=== PATIENT | female | born 1935 | race Caucasian/White ===

== ENCOUNTER → 2016-04-07 | Outpatient (CLI) | payer BC ==
[~2016-04-07] MED LIST: ADVIN10/60 INH; AMLO-110 PO; AMLO5TAB2 PO; ASCA500 PO; ASCO10003 PO; ASPEC81 PO; ASPI81TA28 PO; ATOR-26 PO; ATV/1 PO; ATV1 PO; BIOT1CAP3 PO; BIOTPOW17 PO; BLAC1TAB PO; BLACCAP2 PO; CALC-354 PO; CLB200 PO; CLTP PO; CYAN250T PO; DIPH1TAB PO; DIPH25CA37 PO; FENO134C2 PO; FURO-85 PO; GARL10007 PO; HYDC25 PO; HYDR-5688 PO; ISOS30TA3 PO; ISOS30TA35 PO; LISI-461 PO; LSN40 PO; MAGN400T6 PO; METO100T14 PO; METO50TA7 PO; MULT-188 PO; MULT-506 PO; MULTCHW PO; NITR0.4S UT; NTRSLP4; OXYC1TAB3 PO; PRLSR20 PO; RIVA1TAB4 PO; SNK PO; THIA100T11 PO; THIA250T3 PO; TRAM-10 PO; TRCUNK PO; VITA1TAB4 PO; VITACAP28 PO; VITAMIN E PO; VITATAB16 PO; VTMB12 PO; b12; maxair INH
[2016-04-07 18:07] LABS: BLOOD UREA NITROGEN 26 mg/dl (7-18); BUN/CREATININE RATIO 23.6 (10-20); CALCIUM 9.2 mg/dl (8.5-10.1); CARBON DIOXIDE 30 mmol/L (21-32); CHLORIDE 105 mmol/L (98-107); GLUCOSE 109 mg/dl (70-99); POTASSIUM 4.3 mmol/L (3.5-5.1); SODIUM 142 mmol/L (136-145)
== END | disposition home or self-care (01) ==
LOC: C.LABMFLN 13:30
PROVIDERS: ATTEND Internal Medicine Cardiovascular Disease
DX: R60.9 Edema, unspecified (principal)

== ENCOUNTER → 2016-07-01 | Outpatient (CLI) | payer BC ==
[~2016-07-01] MED LIST changes: -DIPH1TAB PO; +DIPH1TAB87 PO
[2016-07-01 19:46] LABS: HEMATOCRIT 37.8 % (37-47); MEAN CELL VOLUME 90.9 fL (80-100); MEAN CORPUSCULAR HEMOGLOBIN 29.3 pg (25-34); MEAN CORPUSCULAR HGB CONC 32.3 g/dl (32-36); MEAN PLATELET VOLUME 11.5 fL (7.4-10.4); PLATELET COUNT 86 K/uL (130-400); RED BLOOD COUNT 4.16 M/uL (4.2-5.4); WHITE BLOOD COUNT 5.16 K/uL (4.8-10.8)
[2016-07-01 20:02] LABS: BASO ABS # 0.05 K/uL (0-0.2); COMPLETE YES; EOS % 2.3 %; IG% 0.8 %; LYMPH % 32.8 %; LYMPH ABS # 1.69 K/uL (1.2-3.4); NEUT % 50.1 %; PLT ESTIMATE DECREASED
== END | disposition home or self-care (01) ==
LOC: C.LABMFLN 14:42
PROVIDERS: ATTEND Family Medicine
DX: D69.6 Thrombocytopenia, unspecified (principal)

== ENCOUNTER 2016-09-22 14:42 | Emergency (ER) | payer BC ==
[~2016-09-22] VITALS: Ht 160 cm; Wt 85.0 kg
[~2016-09-22 14:42] MED LIST changes: -ASCO10003 PO; -ASPI81TA28 PO; -ATV/1 PO; -BIOT1CAP3 PO; -BLAC1TAB PO; -CALC-354 PO; -CYAN250T PO; -DIPH1TAB87 PO; -FENO134C2 PO; -FURO-85 PO; -ISOS30TA35 PO; -LSN40 PO; -METO100T14 PO; -MULT-188 PO; -MULTCHW PO; -NITR0.4S UT; -OXYC1TAB3 PO; -RIVA1TAB4 PO; -THIA250T3 PO; -TRAM-10 PO; -VITA1TAB4 PO; -VITACAP28 PO; -VTMB12 PO
[2016-09-22 14:45] VITALS: TEMP 36.8; Ht 160 cm; Wt 85.0 kg
--- NOTE | 2016-09-22 15:27 | DIAGNOSTIC IMAGING REPORT ---
LEFT PELVIS/UNILATERAL HIP 2-3VIEWS CLINICAL HISTORY: L hip pain pain COMPARISON: None. DISCUSSION: Postoperative changes consistent with a lumbar laminectomy and fusion. Total right hip arthroplasty. Moderate degenerative narrowing left hip joint space. No evidence for acetabular protrusion. There is no evidence for soft tissue swelling. IMPRESSION: Moderate degenerative change left hip. Postoperative changes to the lumbar spine and right hip. Electronically signed by: Chris Mendoza M.D. 09/22/2016 3:25 PM Dictated Date/Time: 09/22/2016 3:25 PM
[2016-09-22] MEDS ORDERED: MoRPHine SULFATE 10 MG/ML CARP/VIAL IM STA (15:39)
[2016-09-22] MEDS ORDERED: ATOR-26 PO (16:11)
[2016-09-22] MEDS ORDERED: AMLO-110 PO (16:11)
[2016-09-22] MEDS ORDERED: CYAN250T PO (16:11)
[2016-09-22] MEDS ORDERED: BLAC1TAB PO (16:11)
[2016-09-22] MEDS ORDERED: VTMB12 PO (16:11)
[2016-09-22] MEDS ORDERED: MULTCHW PO (16:11)
[2016-09-22] MEDS ORDERED: FENO134C2 PO (16:11)
[2016-09-22] MEDS ORDERED: ASPI81TA28 PO (16:11)
[2016-09-22] MEDS ORDERED: MAGN400T6 PO (16:11)
[2016-09-22] MEDS ORDERED: FURO-85 PO (16:11)
[2016-09-22] MEDS ORDERED: VITA1TAB4 PO (16:11)
[2016-09-22] MEDS ORDERED: NITR0.4S UT (16:11)
[2016-09-22] MEDS ORDERED: VITACAP28 PO (16:11)
[2016-09-22] MEDS ORDERED: BIOT1CAP3 PO (16:11)
[2016-09-22] MEDS ORDERED: ATV/1 PO (16:11)
[2016-09-22] MEDS ORDERED: LSN40 PO (16:11)
[2016-09-22] MEDS ORDERED: RIVA1TAB4 PO (16:11)
[2016-09-22] MEDS ORDERED: ASCO10003 PO (16:11)
[2016-09-22] MEDS ORDERED: TRAM-10 PO (16:11)
[2016-09-22] MEDS ORDERED: GARL10007 PO (16:11)
[2016-09-22] MEDS ORDERED: ADVIN10/60 INH (16:11)
[2016-09-22] MEDS ORDERED: DIPH1TAB87 PO (16:11)
[2016-09-22] MEDS ORDERED: MULT-188 PO (16:11)
[2016-09-22] MEDS ORDERED: ISOS30TA35 PO (16:11)
[2016-09-22] MEDS ORDERED: METO100T14 PO (16:11)
[2016-09-22] MEDS ORDERED: PRLSR20 PO (16:11)
[2016-09-22] MEDS ORDERED: CALC-354 PO (16:11)
[2016-09-22] MEDS ORDERED: THIA250T3 PO (16:17)
[2016-09-22] MEDS ORDERED: OXYC1TAB3 PO (16:21)
[2016-09-22 16:38] VITALS: BP 168/78; PULSE 93; O2SAT 92
--- NOTE | 2016-09-22 18:30 | EMERGENCY ROOM VISIT NOTE ---
History Report prepared by Stacey: Francia Campbell Under the Supervision of: Dr. Devon Moore D.O. First contact with patient: 14:45 Chief Complaint: HIP PAIN Stated Complaint: PAIN IN HIP DOWN FRONT OF LEGS & LOWER BACK History of Present Illness The patient is a 81 year old female who presents to the Emergency Room with complaints of constant left hip pain that worsened yesterday. The pain radiates into her buttock and down her left leg. The patient has been experiencing intermittent left hip pain for the last 3 months but it became constant yesterday. She denies doing anything that would have caused the pain to get worse. She also denies any recent falls. The pain is worse when she ambulates or when she lies on it. She states that she took some pain medication at home and that offered some relief of her pain.The patient states that she experiences nausea and vomiting with the hip pain. She is also experiencing intermittent groin numbness. The patient denies any other complaints including chest pain, shortness of breath, abdominal pain, pain or burning with urination , and numbness or weakness in her legs. The patient has a history of a right hip replacement done by Dr. Galvin - Orthopedic Surgery. Her left hip pain feels similar to the pain she experienced prior to her right hip replacement. The patient's states that Dr. Galvin told the patient that she would probably have to have her left hip replaced eventually also. Source of History: patient, spouse/significant other () Onset: yesterday Position: other (left hip) Quality: other (left hip pain) Timing: constant Modifying Factors (Worsening): other (ambulating, lying on hip) Modifying Factors (Relieving): other (unspecified pain medication) Associated Symptoms: + nausea, + vomiting, + numbness (intermittent in groin , none in legs), No chest pain, No SOB, No abdominal pain, No urinary symptoms ( pain or burning with urination), No weakness (in legs) Review of Systems See HPI for pertinent positives & negatives. A total of 10 systems reviewed and were otherwise negative. Past Medical & Surgical Surgical Problems: (1) Post-operative state Family History Ischemic heart disease Social History Smoking Status: Never Smoker Marital Status: Housing Status: lives with significant other Current/Historical Medications Scheduled Amlodipine (Norvasc), 5 MG PO DAILY Ascorbic Acid (Vitamin C), 1,000 UNITS PO DAILY Aspirin (Aspirin Ec), 81 MG PO DAILY Atorvastatin (Lipitor), 80 MG PO DAILY Biotin (Biotin), 10,000 MCG PO DAILY Black Cohosh (Cimicifuga Racem (Black Cohosh), 1 TAB PO DAILY Calcium Carbonate-Cholecalcife (Caltrate 600+D), 1 TAB PO DAILY Cyanocobalamin (Vitamin B-12), 500 MCG PO DAILY Fenofibrate (Tricor ), 134 MG PO DAILY Fluticasone Prop/Salmeterol (Advair Diskus 100/50 60 Dose), 1 PUFF INH BID Furosemide (Lasix), 20 MG PO DAILY Garlic (Garlic), 1,000 MG PO DAILY Isosorbide Mononitrate Ext Rel (Imdur Ext Rel), 30 MG PO DAILY Lisinopril (Lisinopril), 40 MG PO DAILY Lorazepam (Ativan), 1 MG PO DAILY Magnesium Oxide (Mag-Ox), 400 MG PO TID Metoprolol Tartrate (Lopressor) (Lopressor), 100 MG PO BID Multiple Vitamins W/ Minerals (Centrum Silver), 1 TAB PO DAILY Multiple Vitamins W/ Minerals (Ocuvite), 1 TAB PO DAILY Nitroglycerin (Nitrostat), 0.4 MG UT PRN Omeprazole (Prilosec), 20 MG PO DAILY Rivaroxaban (Xarelto), 20 MG PO DAILY Thiamine Hcl (Vitamin B-1), 250 MCG PO DAILY Vitamin E (Vitamin E), 400 MG PO DAILY Vitamins A & D (Vitamin A & D 5000-400 Unit), 1 CAP PO DAILY Scheduled PRN Diphenhydramine Hcl (Benadryl Allergy), 25 MG PO UD PRN for ALLERGY/SINUS HEADACHE Oxycodone Immediate Rel Tab (Roxicodone Ir), 5 MG PO Q6H PRN for Pain Tramadol (Ultram), 50 MG PO Q4H PRN for Pain Allergies Coded Allergies: No Known Allergies (Verified , 03/20/15) Physical Exam Vital Signs Date Time Temp Pulse Resp B/P (MAP) Pulse Ox O2 Delivery O2 Flow Rate FiO2 09/22/16 16:38 93 18 168/78 92 09/22/16 15:48 83 16 156/94 94 Room Air 09/22/16 14:45 36.8 85 18 180/79 93 Room Air Physical Exam GENERAL: alert, sitting on edge of bed holding left hip, well appearing, well nourished, no acute distress, non-toxic EYE EXAM: normal conjunctiva OROPHARYNX: no exudate, no erythema, lips, buccal mucosa, and tongue normal and mucous membranes are moist NECK: supple, no nuchal rigidity, no adenopathy, non-tender LUNGS: Clear to auscultation. Normal chest wall mechanics HEART: no murmurs, S1 normal and S2 normal ABDOMEN: abdomen soft, non-tender, normo-active bowel sounds, no masses, no rebound or guarding. BACK: Back is symmetrical on inspection and there is no deformity, no midline tenderness, no CVA tenderness, old midline lower lumbar incisions SKIN: no rashes and no bruising UPPER EXTREMITIES: upper extremities are grossly normal. LOWER EXTREMITIES: No pitting edema, acute reproducible tenderness in left hip/ left gluteus tracking down to left IT band, flexion/extension of hip, knee, ankle, and EHL is 5/5 bilaterally, patellar and Achilles reflexes are intact bilaterally, DPs 2/4 bilaterally, gross sensations intact. NEURO EXAM: Normal sensorium, cranial nerves II-XII grossly intact, normal speech, no gross weakness of arms Medical Decision & Procedures ER Provider Diagnostic Interpretation: Radiology results as stated below per my review and the radiologist's interpretation: LEFT PELVIS/UNILATERAL HIP 2-3VIEWS DISCUSSION: Postoperative changes consistent with a lumbar laminectomy and fusion. Total right hip arthroplasty. Moderate degenerative narrowing left hip joint space. No evidence for acetabular protrusion. There is no evidence for soft tissue swelling. IMPRESSION: Moderate degenerative change left hip. Postoperative changes to the lumbar spine and right hip. Electronically signed by: Chris Mendoza M.D. 09/22/2016 3:25 PM Dictated Date/Time: 09/22/2016 3:25 PM Medications Administered Medications (Trade) Dose Ordered Sig/Debbie Route Start Time Stop Time Status Last Admin Dose Admin Morphine Sulfate (MoRPHine SULFATE INJ) 6 mg NOW STAT IM 09/22/16 15:39 09/22/16 15:40 DC 09/22/16 15:48 6 MG ED Course ED COURSE: Vital signs were reviewed and showed hypertension. The patients medical record was reviewed The above diagnostic studies were performed and reviewed. ED treatments and interventions as stated above. 1449: The patient was evaluated in room C12. A complete history and physical examination was performed. 1539: Ordered Morphine Sulfate 6 mg IM 1604: Upon reevaluation, the patient is doing well. I discussed my findings with the patient and she understands and agrees with the treatment plan. Based on the patients age, coexisting illnesses, exam and lab findings the decision to treat as an outpatient was made. The patient remained stable while under my care. The patient appeared well at the time of discharge. Medical Decision Differential diagnoses includes but is not limited to fracture, dislocation, neurovascular compromise, compartment syndrome, soft tissue injury. Medication Reconciliation: I attest that I have personally reviewed the patient' s current medication list. Blood pressure screening: Patient was found to have an elevated blood pressure and was referred to their primary doctor for recheck and further treatment. Patient is a 81-year-old female who presents the ER for left-sided pain. Pain is worsened with laying on hip and movement. Patient notes this feels exactly like her previous right hip which she had to have replaced. No fractures. X- ray show degenerative changes. Patient is given IM morphine with improvement. She was discharged neurologically intact follow-up with her PCP. No weakness in her legs. No numbness in her groin currently. Not consistent with cauda equina. Discussed with Pt concerning signs and symptoms to watch out for. Pt was instructed to follow up with their PCP and discussed with the patient their option to return to the ED at anytime for persistent or worsening symptoms. The appropriate anticipatory guidance and out-patient management, including indications for return to the emergency department, were explained at length to the patient and understood. [place] Drug Monitoring Program Search Results: patient reviewed within database, no issues identified Impression Primary Impression: Arthritis of left hip Additional Impression: Left hip pain Scribe Attestation The scribe's documentation has been prepared under my direction and personally reviewed by me in its entirety. I confirm that the note above accurately reflects all work, treatment, procedures, and medical decision making performed by me. Departure Information Dispostion Home / Self-Care Prescriptions Oxycodone Immediate Rel Tab (ROXICODONE IR) 5 Mg Tab 5 MG PO Q6H Y for Pain, #10 TAB Prov: Devon Moore, DO 09/22/16 Referrals Aysha Rose M.D. (PCP) Forms HOME CARE DOCUMENTATION FORM, IMPORTANT VISIT INFORMATION, WORK / SCHOOL INSTRUCTIONS Patient Instructions ED Degenerative Joint Disease, My [facility] Additional Instructions Please follow up with your primary care doctor with in the next 24 hours. Any worsening of your symptoms, please return to the ED immediately. This includes worsening pain, numbness in your groin, inability to move your bowels, urinate, weakness in your legs, or any other concerning signs or symptoms from your standpoint. You were given medications during this visit that will inhibit your ability to drive, operate machinery and work. Please do NOT drive, operate machinery or work for the next 12hrs. You were also given a prescription for a narcotic/oxy IR. While taking this medication you should also not drive, operate machinery, work or take your ativan. Problem Qualifiers
== END 2016-09-22 16:39 | disposition home or self-care (01) ==
LOC: C.EDB 14:43 → C.EDC 16:39
DX: M16.12 Unilateral primary osteoarthritis, left hip (principal); R19.7 Diarrhea, unspecified; Z96.641 Presence of right artificial hip joint; Z82.49 Family history of ischemic heart disease and other diseases of the circulatory system; Z79.82 Long term (current) use of aspirin

== ENCOUNTER → 2016-12-30 | Outpatient (CLI) | payer BC ==
[~2016-12-30] MED LIST changes: -AMLO5TAB2 PO; -ASCA500 PO; +ASCO10003 PO; -ASPEC81 PO; +ASPI81TA28 PO; +ATV/1 PO; -ATV1 PO; +BIOT1CAP3 PO; -BIOTPOW17 PO; +BLAC1TAB PO; -BLACCAP2 PO; +CALC-354 PO; -CLB200 PO; -CLTP PO; +DIPH1TAB PO; -DIPH25CA37 PO; +FENO134C2 PO; +FURO-85 PO; -HYDC25 PO; -HYDR-5688 PO; -ISOS30TA3 PO; +ISOS30TA35 PO; -LISI-461 PO; +LSN40 PO; +METO100T14 PO; -METO50TA7 PO; +MULT-188 PO; -MULT-506 PO; +MULTCHW PO; +NITR0.4S UT; -NTRSLP4; +OXYC1TAB3 PO; +RIVA1TAB4 PO; -SNK PO; -THIA100T11 PO; +THIA250T3 PO; +TRAM-10 PO; -TRCUNK PO; +VITA1TAB4 PO; +VITACAP28 PO; -VITAMIN E PO; -VITATAB16 PO; +VTMB12 PO; -b12; -maxair INH
[2016-12-30 18:13] LABS: ALT/SGPT 19 U/L (12-78); AST/SGOT 17 U/L (15-37); BLOOD UREA NITROGEN 28 mg/dl (7-18); BUN/CREATININE RATIO 25.5 (10-20); CALCIUM 9.7 mg/dl (8.5-10.1); CARBON DIOXIDE 28 mmol/L (21-32); CHLORIDE 105 mmol/L (98-107); GLUCOSE 111 mg/dl (70-99); POTASSIUM 4.3 mmol/L (3.5-5.1); SODIUM 142 mmol/L (136-145)
[2016-12-30 18:19] LABS: HEMATOCRIT 38.4 % (37-47); MEAN CELL VOLUME 88.7 fL (80-100); MEAN CORPUSCULAR HEMOGLOBIN 27.7 pg (25-34); MEAN CORPUSCULAR HGB CONC 31.3 g/dl (32-36); MEAN PLATELET VOLUME 11.7 fL (7.4-10.4); PLATELET COUNT 133 K/uL (130-400); RED BLOOD COUNT 4.33 M/uL (4.2-5.4); WHITE BLOOD COUNT 6.07 K/uL (4.8-10.8)
== END | disposition home or self-care (01) ==
LOC: C.LABMFLN 13:05
PROVIDERS: ATTEND Internal Medicine Cardiovascular Disease
DX: I25.10 Atherosclerotic heart disease of native coronary artery without angina pectoris (principal); I34.0 Nonrheumatic mitral (valve) insufficiency; I10 Essential (primary) hypertension; R06.09 Other forms of dyspnea

== ENCOUNTER → 2017-04-14 | Outpatient (CLI) | payer BC ==
[~2017-04-14] MED LIST changes: -DIPH1TAB PO; +DIPH1TAB87 PO; -OXYC1TAB3 PO
[2017-04-14 12:41] LABS: BASO % 0.5 %; BASO ABS # 0.03 K/uL (0-0.2); EOS % 1.9 %; EOS ABS # 0.12 K/uL (0-0.5); HEMATOCRIT 34.6 % (37-47); HEMOGLOBIN 10.7 g/dL (12.0-16.0); IG# 0.01 K/uL (0.00-0.02); LYMPH % 25.4 %; LYMPH ABS # 1.57 K/uL (1.2-3.4); MEAN CORPUSCULAR HEMOGLOBIN 27.2 pg (25-34); MEAN PLATELET VOLUME 11.6 fL (7.4-10.4); MONO % 11.5 %; MONO ABS # 0.71 K/uL (0.11-0.59); NEUT % 60.5 %; NEUT ABS # 3.75 K/uL (1.4-6.5); PLATELET COUNT 246 K/uL (130-400); RED CELL DISTRIBUTION WIDTH CV 16.2 % (11.5-14.5); RED CELL DISTRIBUTION WIDTH SD 52.3 fL (36.4-46.3); WHITE BLOOD COUNT 6.19 K/uL (4.8-10.8)
[2017-04-14 13:04] LABS: MEAN CORPUSCULAR HGB CONC 30.9 g/dl (32-36)
== END | disposition home or self-care (01) ==
LOC: C.LABMFLN 08:31
PROVIDERS: ATTEND Internal Medicine
DX: D69.3 Immune thrombocytopenic purpura (principal)

== ENCOUNTER → 2017-05-12 | Outpatient (CLI) | payer BC ==
[2017-05-12 17:51] LABS: BASO % 0.9 %; BASO ABS # 0.04 K/uL (0-0.2); EOS % 1.5 %; EOS ABS # 0.07 K/uL (0-0.5); HEMOGLOBIN 10.2 g/dL (12.0-16.0); IG# 0.01 K/uL (0.00-0.02); LYMPH ABS # 1.41 K/uL (1.2-3.4); MEAN CELL VOLUME 87.3 fL (80-100); MEAN PLATELET VOLUME 10.7 fL (7.4-10.4); MONO % 11.3 %; MONO ABS # 0.53 K/uL (0.11-0.59); NEUT % 56.1 %; NEUT ABS # 2.64 K/uL (1.4-6.5); PLATELET COUNT 223 K/uL (130-400); RED CELL DISTRIBUTION WIDTH CV 16.2 % (11.5-14.5); RED CELL DISTRIBUTION WIDTH SD 52.1 fL (36.4-46.3)
[2017-05-12 18:01] LABS: MEAN CORPUSCULAR HGB CONC 30.9 g/dl (32-36)
--- NOTE | 2017-06-15 06:24 | CODING QUERY NO DIAGNOSIS ---
TREATMENT RENDERED WITHOUT A DIAGNOSIS Dr. Dick, To promote full compliance with coding requirements relating to patient care, physician participation is requested in all cases of account processor uncertainty. Please assist us with providing a diagnosis/symptom for the test(s) below: A diagnosis/symptom was not documented on your Order. A valid diagnosis/symptom is required to bill all insurances. Please remember that we are unable to code a diagnosis of rule out, probable, possible, questionable, or suspected. Tests that require a diagnosis: * CBC W/AUTO DIFF DIAGNOSIS: DATE OF SERVICE: 05/12/17 Provider Signature: Date: Thank you Guanako Kumari [facility] Information Management Once completed, please kindly fax back to [phone] For questions please call [phone]
== END | disposition home or self-care (01) ==
LOC: C.LABMFLN 13:37
PROVIDERS: ATTEND Internal Medicine Hematology
DX: D69.3 Immune thrombocytopenic purpura (principal)

== ENCOUNTER → 2017-07-15 | Outpatient (CLI) | payer BC ==
[2017-07-15 17:36] LABS: HEMATOCRIT 38.5 % (37-47); HEMOGLOBIN 11.9 g/dL (12.0-16.0); MEAN CELL VOLUME 87.5 fL (80-100); MEAN CORPUSCULAR HGB CONC 30.9 g/dl (32-36); MEAN PLATELET VOLUME 10.8 fL (7.4-10.4); PLATELET COUNT 275 K/uL (130-400); RED CELL DISTRIBUTION WIDTH CV 15.8 % (11.5-14.5); RED CELL DISTRIBUTION WIDTH SD 51.1 fL (36.4-46.3); WHITE BLOOD COUNT 7.27 K/uL (4.8-10.8)
[2017-07-15 17:50] LABS: ALT/SGPT 27 U/L (12-78); AST/SGOT 24 U/L (15-37); BLOOD UREA NITROGEN 32 mg/dl (7-18); CALCIUM 9.3 mg/dl (8.5-10.1); CARBON DIOXIDE 30 mmol/L (21-32); CHOLESTEROL 193 mg/dl (0-200); CREATININE 1.24 mg/dl (0.60-1.20); GLUCOSE 92 mg/dl (70-99); POTASSIUM 3.6 mmol/L (3.5-5.1); SODIUM 139 mmol/L (136-145)
[2017-07-15 17:53] LABS: LDL CHOLESTEROL CALCULATED 105 mg/dl
== END | disposition home or self-care (01) ==
LOC: C.LABMFLN 11:09
PROVIDERS: ATTEND Internal Medicine Cardiovascular Disease
DX: E78.5 Hyperlipidemia, unspecified (principal); I25.10 Atherosclerotic heart disease of native coronary artery without angina pectoris; I10 Essential (primary) hypertension